=== PATIENT | female | born 1970 | race Caucasian/White ===

== ENCOUNTER 2018-08-04 18:59 | Emergency (ER) | payer BC, MEDICAID | END 2018-08-04 20:33 | disposition home or self-care (01) | LOC: FTE 18:59 | DX: S16.1XXA Strain of muscle, fascia and tendon at neck level, initial encounter (principal); S29.9XXA Unspecified injury of thorax, initial encounter; V49.40XA Driver injured in collision with unspecified motor vehicles in traffic accident, initial encounter | CPT/HCPCS: 99282 ==

== ENCOUNTER 2019-01-15 18:57 | Emergency (ER) | payer BC ==
[2019-01-15] MEDS: KETOROLAC 60 MG INJ IM (21:14)
[2019-01-15] MEDS: DEXAMETHASONE 10 MG/ML 1 ML INJ IM (21:15)
[2019-01-15] MEDS: CYCLOBENZAPRINE 10 MG TAB PO (21:15)
== END 2019-01-15 21:47 | disposition home or self-care (01) ==
LOC: FTE 21:47
DX: M62.830 Muscle spasm of back (principal); M54.31 Sciatica, right side; E11.9 Type 2 diabetes mellitus without complications
CPT/HCPCS: 81025; 96372; 99284-25